=== PATIENT | female | born 1940 | race Caucasian/White ===

== ENCOUNTER 2020-04-16 15:04 | Outpatient (REF) | payer SELFPAY | END 2020-04-16 15:05 | disposition home or self-care (01) | LOC: HO.HAP 15:04 | PROVIDERS: PCP Registered Nurse; Visit Provider Registered Nurse | DX: Z46.1 Encounter for fitting and adjustment of hearing aid (principal) | CPT/HCPCS: 92700 ==

== ENCOUNTER 2020-10-19 12:43 | Outpatient (REF) | payer SELFPAY | END 2020-10-19 12:44 | disposition home or self-care (01) | LOC: HO.HAP 12:43 | PROVIDERS: Visit Provider Registered Nurse | DX: Z13.89 Encounter for screening for other disorder (principal) ==

== ENCOUNTER 2021-05-16 11:00 | Outpatient (REF) | payer SELFPAY | END 2021-05-16 11:01 | disposition home or self-care (01) | LOC: HO.HAP 11:00 | PROVIDERS: Visit Provider Registered Nurse | DX: Z13.89 Encounter for screening for other disorder (principal) ==

== ENCOUNTER 2021-09-12 13:18 | Outpatient (REF) | payer SELFPAY ==
--- NOTE | 2021-09-12 13:42 | MHC.AU.HFU ---
Hearing Instrument Follow-Up- Binaural Date of Visit: 09/12/21 Right Ear:Director Of Individual Giving: Raphael Model: [employer] Edge AI 2400 R Serial Number: [id number] Repair Warranty: Loss and Damage Warranty: Used 09/12/2021 Battery Size: Rechargeable Color: Juan Silver Director Of Operations For Therapy: #2 Type of Mold: Custom Integrated Absolute Power Mold-size 2 video clerk #[id number] L&D 04/28/2022 Type of Wax Guard: HearClear Dispensed By: [facility] Date of Fittin02/06/2020 Left Ear: Director Of Individual Giving: Raphael Model: [employer] Edge AI 2400 R Serial Number: [id number] Repair Warranty: 04/15/2023 Loss and Damage Warranty: Battery Size: Rechargeable Color: Juan Silver Director Of Operations For Therapy: #2 Type of Mold: Custom Integrated Absolute Power Mold-size 2 video clerk #[id number] L&D 02/13/2022 Type of Wax Guard: Hear Clear Dispensed By: [facility] Date of Fittin02/06/2020 Follow-Up Summary: Patient completed L&D form for loss of the right aid and Absolute Power Director Of Operations For Therapy. Faxed form to Raphael cervantes. Recommendations: Schedule appointment for fitting of L&D when in. $350.00 Replacement Fee due at ti me of fitting. Diagnosis Code(s):Primary Diagnosis: H90.3 Bilateral Sensorineural Hearing Loss Signature: Provider: Ananda Ochoa, CCC-A
== END 2021-09-12 13:19 | disposition home or self-care (01) ==
LOC: HO.HAP 13:18
PROVIDERS: Visit Provider Registered Nurse
DX: Z13.89 Encounter for screening for other disorder (principal)

== ENCOUNTER 2021-10-03 10:24 | Outpatient (REF) | payer SELFPAY | END 2021-10-03 10:25 | disposition home or self-care (01) | LOC: HO.HAP 10:24 | PROVIDERS: Visit Provider Registered Nurse | DX: Z13.89 Encounter for screening for other disorder (principal) ==

== ENCOUNTER 2021-10-19 11:09 | Outpatient (REF) | payer SELFPAY ==
--- NOTE | 2021-10-25 16:50 | MHC.AU.HFU ---
Hearing Instrument Follow-Up- Binaural Date of Visit: 10/19/21 Right Ear: Time Analysis Clerk: Raphael Model: [employer] Edge AI 2400 R Serial Number: [id number] Repair Warranty: 04/15/2023 Loss and Damage Warranty: Used 09/12/2021 Battery Size: Rechargeable Color: Juan Silver Attorney Lawyer: #2 Type of Mold: Custom Integrated Absolute Power Mold-size 2 sr community manager [id number] warranty 04/28/2022 Type of Wax Guard: HearClear Dispensed By: [facility] Date of Fittin02/06/2020 Left Ear: Time Analysis Clerk: Raphael Model: [employer] Edge AI 2400 R Serial Number: [id number] Repair Warranty: 04/15/2023 Loss and Damage Warranty: 04/15/2023 Battery Size: Rechargeable Color: Juan Silver Attorney Lawyer: #2 Type of Mold: Custom Integrated Absolute Power Mold-size 2 sr community manager [id number] Type of Wax Guard: Hear Clear Dispensed By: [facility] Date of Fittin02/06/2020 Follow-Up Summary: Patient's son came in to pick-up the left hearing aid from repair. Brought the right aid in and confirmed programming and pairing of both aids in the [employer] software. Cleaned the right aid, replaced wax guard. Aids are working well. Recommendations: Collected $350 L+D replacement fee that was due from last visit for the right L+D aid. No charge for repair in warranty for the left aid. Diagnosis Code(s):Primary Diagnosis: H90.3 Bilateral Sensorineural Hearing Loss Signature: Provider: Vicente Joseph, CCC-A
== END 2021-10-19 11:10 | disposition home or self-care (01) ==
LOC: HO.HAP 11:09
PROVIDERS: Visit Provider Registered Nurse
DX: Z46.1 Encounter for fitting and adjustment of hearing aid (principal); H90.3 Sensorineural hearing loss, bilateral
CPT/HCPCS: V5299

== ENCOUNTER 2022-05-22 13:51 | Outpatient (REF) | payer SELFPAY ==
--- NOTE | 2022-05-22 15:38 | MHC.AU.HFU ---
Hearing Instrument Follow-Up- Binaural Date of Visit: 05/22/22 Right Ear: Raphael Royal AI 2400 PADMA R SN: [id number] Color: Juan Silver Repair Warranty: 04/15/2023 Loss and Damage Warranty: Used 09/12/2021 Battery Size: Rechargeable Chromosomal Disorders Counselor: #2 Type of Mold: Custom Integrated Absolute Power Mold-size 2 molder offbearer [id number] warranty 04/28/2022 Type of Wax Guard: HearClear Dispensed By: [facility] Date of Fittin02/06/2020 Left Ear: Raphael Royal AI 2400 PADMA R SN: [id number] Color: Juan Silver Repair Warranty: 04/15/2023 Loss and Damage Warranty: 04/15/2023 Battery Size: Rechargeable Chromosomal Disorders Counselor: #2 Type of Mold: Custom Integrated Absolute Power Mold-size 2 molder offbearer [id number] Type of Wax Guard: Hear Clear Dispensed By: [facility] Date of Fittin02/06/2020 Follow-Up Summary: Rambo reported that her hearing aids have not been working, particularly the right one, as she is having increased difficulty hearing and understanding speech. Upon inspection, both wax guards completely blocked with wax and left hearing aid missing microphone cover. Cleaned hearing aids and ear molds. Vacuumed microphones and replaced left microphone cover. Replaced both wax guards. A listening check demonstrated both hearing aids are working well and Rambo noticed an immediate improvement in office. Otoscopy revealed slight wax, bilaterally. Instructed how to change the wax guard at Rambo's request so she can perform at home. She purchased one package of HearClear wax guards. Recommendations: Hearing instrument maintenance in 6 months, or sooner if needed. Please contact our clinic with any questions or concerns. Diagnosis Code(s): Primary Diagnosis: H90.3 Bilateral Sensorineural Hearing Loss Signature: Provider: Cecil Piper, [facility]
== END 2022-05-22 13:52 | disposition home or self-care (01) ==
LOC: HO.HAP 13:51
PROVIDERS: Visit Provider Registered Nurse
DX: Z46.1 Encounter for fitting and adjustment of hearing aid (principal); H90.3 Sensorineural hearing loss, bilateral
CPT/HCPCS: V5267

== ENCOUNTER 2023-03-05 13:23 | Outpatient (REF) | payer SELFPAY | END 2023-03-05 13:24 | disposition home or self-care (01) | LOC: HO.HAP 13:23 | PROVIDERS: Visit Provider Registered Nurse | DX: Z13.89 Encounter for screening for other disorder (principal) ==

== ENCOUNTER 2023-03-07 15:12 | Outpatient (REF) | payer SELFPAY | END 2023-03-07 15:13 | disposition home or self-care (01) | LOC: HO.HAP 15:12 | PROVIDERS: Visit Provider Registered Nurse | DX: Z13.89 Encounter for screening for other disorder (principal) ==